=== PATIENT | female | born 1980 | race Two or more races ===

== ENCOUNTER 2019-01-23 15:36 | Emergency (ER) | payer OTHER ==
[~2019-01-23] VITALS: Ht 170.2 cm; Wt 86.2 kg
== END 2019-01-23 17:47 | disposition home or self-care (01) ==
LOC: ER 15:36
DX: K29.70 Gastritis, unspecified, without bleeding (principal)

== ENCOUNTER 2019-07-06 17:08 | Emergency (ER) | payer OTHER ==
[~2019-07-06] VITALS: Ht 167.6 cm; Wt 88.5 kg
[2019-07-06] MEDS ORDERED: TROMBONEX CAPS1 EACH (17:15)
== END 2019-07-06 19:04 | disposition home or self-care (01) ==
LOC: ER 17:08
DX: M25.561 Pain in right knee (principal); R25.2 Cramp and spasm